=== PATIENT | female | born 1975 | race Caucasian/White ===

== ENCOUNTER 2018-12-31 11:06 | Emergency (ER) | payer SELFPAY ==
[~2018-12-31] VITALS: Ht 160 cm; Wt 82.1 kg
[~2018-12-31 11:06] MED LIST: ALBU2.5V8 INH; PRED50TA PO; PRED5DRO20 OP
[2018-12-31 11:23] VITALS: BP 155/73
[2018-12-31] MEDS ORDERED: IPRATRPIUM/ALBUTEROL 0.5/2.5MG 3 ML NEBU. NEB ONE (11:45)
--- NOTE | 2018-12-31 12:07 | PHYS DOC ---
Past Medical History Past Medical History: Asthma, Cancer, Hypertension, Hypothyroid, Other Additional Past Medical Histor: THYROID CA Past Surgical History: Other Additional Past Surgical Histo: THYROIDECTOMY Additional Information: 0.25 PPD Alcohol Use: Occasionally Drug Use: Marijuana Adult General Chief Complaint Chief Complaint: COUGH [facility] HPI Patient is a 43 year old female who presents with complaining of cough. Patient complaining of productive cough with yellow sputum for the last 2 weeks and subjective fever and nasal congestion. Patient complaining of shortness of breath, chest soreness after episodes of cough, generalized weakness. She denies diarrhea and urinary symptom. Patient did not seek medical attention for the last 2 weeks and took [id number] cough medication without improvement of her condition. Patient used to smoke one pack a cigarettes a day and cut down her smoking to 5 or 6 cigarettes a day recently. Review of Systems Review of Systems Constitutional: Subjective fever] Eyes: Denies change in visual acuity, redness, or eye pain [] HENT: Force nasal congestion Respiratory: Ports cough and shortness of breath Cardiovascular: No additional information not addressed in HPI [] GI: Denies abdominal pain, bloody stools or diarrhea and reports nausea and vomiting[] : Denies dysuria or hematuria [] Musculoskeletal: Denies back pain or joint pain [] Integument: Denies rash or skin lesions [] Neurologic: Denies headache, focal weakness or sensory changes [] Endocrine: Denies polyuria or polydipsia [] All other systems were reviewed and found to be within normal limits, except as documented in this note. Current Medications Current Medications Current Medications Medications (Trade) Dose Ordered Sig/Kamila Start Time Stop Time Status Last Admin Dose Admin Albuterol/ Ipratropium (Duoneb) 3 ml 1X ONCE 12/31/18 11:45 12/31/18 11:46 DC 12/31/18 11:54 3 ML Allergies Allergies Allergies Coded Allergies Type Severity Reaction Last Updated Verified Penicillins Allergy Intermediate 12/31/18 Yes Physical Exam Physical Exam Constitutional: Well developed, well nourished, mild distress, non-toxic appearance. [] HENT: Normocephalic, atraumatic, bilateral external ears normal, oropharynx moist, no oral exudates, nose normal. [] Eyes: PERRLA, EOMI, conjunctiva normal, no discharge. [] Neck: Normal range of motion, no tenderness, supple, no stridor. [] Cardiovascular:Heart rate regular rhythm, no murmur [] Lungs & Thorax: Mild rhonchi without wheezing and respiratory distress. Abdomen: Bowel sounds normal, soft, no tenderness, no masses, no pulsatile masses. [] Skin: Warm, dry, no erythema, no rash. [] Back: No tenderness, no CVA tenderness. [] Extremities: No tenderness, no cyanosis, no clubbing, ROM intact, no edema. [] Neurologic: Alert and oriented X 3, normal motor function, normal sensory function, no focal deficits noted. [] Psychologic: Affect normal, judgement normal, mood normal. [] Current Patient Data Vital Signs Vital Signs Date Time Temp Pulse Resp B/P (MAP) Pulse Ox O2 Delivery O2 Flow Rate FiO2 12/31/18 11:54 100 Room Air 12/31/18 11:23 97.9 51 20 155/73 (100) 97.9 EKG EKG [] Radiology/Procedures Radiology/Procedures [facility] [address] [place], [place] [id number] IMAGING REPORT Signed PATIENT: ALYSA MACIAS ACCOUNT: [id number] : 1975 LOCATION: ER AGE: 43 SEX: F EXAM STATUS: REG ER ORD. PHYSICIAN: ZEV BARON MD REASON: cough for 2 weeks PROCEDURE: CHEST PA & LATERAL Chest, 2 views, 12/31/2018: HISTORY: Cough The heart size and pulmonary vascularity are normal. A dense nodule in the left base is probably a granuloma. No acute infiltrate is seen. There is no evidence of pleural fluid. IMPRESSION: 1. Probable small granuloma in the left lung base. 2. No acute infiltrates. Electronically signed by: Sina Childs MD (12/31/2018 12:16 PM) [facility] DICTATED and SIGNED BY: SINA CHILDS MD DATE: 12/31/18 1216 Course & Med Decision Making Course & Med Decision Making Pertinent Imaging studies reviewed. (See chart for details) I've spoken with the patient and/or caregivers. I've explained the patient's condition, diagnosis and treatment plan based on information available to me at this time. I've answered the patient's and/or caregivers questions and addressed any concerns. The patient and/or caregivers have a good understanding the patient's diagnosis, condition and treatment plan as can be expected at this point. Vital signs have been stabilized. The patient's condition is stable for discharge from the emergency department. The patient will pursue further outpatient evaluation with her primary care provider or other designated consulting physician as outlined in the discharge instructions. Patient and/or caregivers are agreeable to this plan of care and follow-up instructions have been explained in detail. The patient and/or caregivers have received these instructions in written format and expressed understanding of these discharge instructions. The patient and her caregivers are aware that if any significant change in condition or worsening of symptoms should prompt him to immediately return to this of the closest emergency department. If an emergent department is not readily available I would encourage him to call 911. [place] Disclaimer Dragon Disclaimer This electronic medical record was generated, in whole or in part, using a voice recognition dictation system. Departure Departure Impression: Primary Impression: Acute bronchitis Additional Impressions: Tobacco abuse Tobacco abuse counseling Condition: IMPROVED Referrals: UNKNOWN PCP NAME (PCP) Patient Instructions: Acute Bronchitis, Smoking Cessation, Tips For Success Additional Instructions: Drink plenty of liquids Follow-up with your primary care physician in 3-5 days Return to ER if not getting better Scripts Prednisone (PREDNISONE) 50 Mg Tablet 1 TAB PO DAILY, #5 TAB Prov: ZEV BARON MD 12/31/18 Benzonatate (TESSALON PERLE) 100 Mg Capsule 1 CAP PO TID for cough, #30 CAP Prov: ZEV BARON MD 12/31/18 Sulfamethoxazole/Trimethoprim (BACTRIM DS TABLET) 1 Each Tablet 1 TAB PO BID for infection, #14 TAB Prov: ZEV BARON MD 12/31/18 Albuterol Sulfate (ALBUTEROL SULFATE NEB SOLN) 2.5 Mg/3 Ml Vial.neb 1 VIAL NEB Q6HRS PRN for SHORTNESS OF BREATH, #25 VIAL Prov: ZEV BARON MD 12/31/18 Problem Qualifiers Primary Impression: Acute bronchitis Bronchitis organism: unspecified organism Qualified Codes: J20.9 - Acute bronchitis, unspecified ZEV BARON MD December 31, 2018 12:07
--- NOTE | 2018-12-31 12:19 | RAD ---
Chest, 2 views, 12/31/2018: HISTORY: Cough The heart size and pulmonary vascularity are normal. A dense nodule in the left base is probably a granuloma. No acute infiltrate is seen. There is no evidence of pleural fluid. IMPRESSION: 1. Probable small granuloma in the left lung base. 2. No acute infiltrates. Electronically signed by: Sina Childs MD (12/31/2018 12:16 PM) [facility]
[2018-12-31] MEDS ORDERED: BENZ100C PO (12:22)
[2018-12-31] MEDS ORDERED: PRED50TA PO (12:22)
[2018-12-31] MEDS ORDERED: ALBU2.5V5 NEB (12:22)
[2018-12-31] MEDS ORDERED: SULF1TAB24 PO (12:22)
== END 2018-12-31 12:30 | disposition home or self-care (01) ==
LOC: ER 11:06
DX: J20.9 Acute bronchitis, unspecified (principal); R50.9 Fever, unspecified; R53.1 Weakness; Z71.6 Tobacco abuse counseling; F17.210 Nicotine dependence, cigarettes, uncomplicated; J45.909 Unspecified asthma, uncomplicated; I10 Essential (primary) hypertension; R11.2 Nausea with vomiting, unspecified; Z88.0 Allergy status to penicillin; E89.0 Postprocedural hypothyroidism; Z90.89 Acquired absence of other organs
CPT/HCPCS: 71046; 94640; 99284; J7620

== ENCOUNTER 2019-07-13 21:38 | Emergency (ER) | payer SELFPAY ==
[~2019-07-13] VITALS: Ht 160 cm; Wt 83.9 kg
[~2019-07-13 21:38] MED LIST changes: +ALBU2.5V5 NEB; +BENZ100C PO; +SULF1TAB24 PO
[2019-07-13 22:02] VITALS: BP 123/66
--- NOTE | 2019-07-13 22:48 | PHYS DOC ---
Past Medical History Past Medical History: Asthma, Cancer, Hypertension, Hypothyroid, Other Additional Past Medical Histor: THYROID CA Past Surgical History: Other Additional Past Surgical Histo: THYROIDECTOMY Alcohol Use: Occasionally Drug Use: Marijuana Adult General Chief Complaint Chief Complaint: LOWER EXT PAIN HPI HPI Patient is a 43 year old female who presents to the emergency Department for right foot pain has been ongoing for 3 months. She describes the pain as pins and needles going up and down her foot as she tries to walk on it. She describes the pain is her foot been asleep. She states that this is been ongoing for quite some time. Review of Systems Review of Systems Constitutional: Denies fever or chills [] Eyes: Denies change in visual acuity, redness, or eye pain [] HENT: Denies nasal congestion or sore throat [] Respiratory: Denies cough or shortness of breath [] Cardiovascular: No additional information not addressed in HPI [] GI: Denies abdominal pain, nausea, vomiting, bloody stools or diarrhea [] : Denies dysuria or hematuria [] Musculoskeletal: Reports R foot pain. Integument: Denies rash or skin lesions [] Neurologic: Denies headache, focal weakness or sensory changes [] Endocrine: Denies polyuria or polydipsia [] Complete systems were reviewed and found to be within normal limits, except as documented in this note. Allergies Allergies Allergies Coded Allergies Type Severity Reaction Last Updated Verified Penicillins Allergy Intermediate 12/31/18 Yes Physical Exam Physical Exam Constitutional: Well developed, well nourished, no acute distress, non-toxic appearance. [] HENT: Normocephalic, atraumatic, bilateral external ears normal, oropharynx moist, no oral exudates, nose normal. [] Eyes: PERRLA, EOMI, conjunctiva normal, no discharge. [] Neck: Normal range of motion, no tenderness, supple, no stridor. [] Skin: Warm, dry, no erythema, no rash. [] Back: No tenderness, no CVA tenderness. [] Extremities: No tenderness, no cyanosis, no clubbing, ROM intact, no edema. [] Neurologic: Alert and oriented X 3, normal motor function, normal sensory function, no focal deficits noted. [] Psychologic: Affect normal, judgement normal, mood normal. [] Current Patient Data Vital Signs Vital Signs Date Time Temp Pulse Resp B/P (MAP) Pulse Ox O2 Delivery O2 Flow Rate FiO2 07/13/19 22:02 97.9 77 15 123/66 (85) 95 Room Air 97.9 EKG EKG [] Radiology/Procedures Radiology/Procedures [] Course & Med Decision Making Course & Med Decision Making Pertinent Labs and Imaging studies reviewed. (See chart for details) Discussed with patient the need to obtain a primary care doctor to manage these chronic symptoms. Discussed with patient and nursing and gave out resources for free clinics. A medical screening exam was performed on this patient and the patient does not appear to be having a medical emergency. Her symptoms are not of sufficient severity and within reasonable medical probability it is unlikely the absence of immediate medical attention would result in placing the health of the individual (or, with respect to a woman, the health of the woman or her unborn child) in serious jeopardy, serious impairment to bodily functions, or serious dysfunction of any bodily organ or part. If , the patient is not in labor Dragon Disclaimer Dragon Disclaimer This electronic medical record was generated, in whole or in part, using a voice recognition dictation system. Departure Departure Impression: Primary Impression: Encounter for medical screening examination Disposition: HOME, SELF-CARE Condition: STABLE Referrals: UNKNOWN PCP NAME (PCP) Patient Instructions: Medical Screening Exam Additional Instructions: Thank you for visiting [facility]. We appreciate you trusting us with your care. If any additional problems come up don't hesitate to return to visit us. If symptoms worsen come back to the Emergency Department. Any concerning symptoms that start such as chest pain, shortness of air, weakness or numbness on one side of the body, running high fevers or any other concerning symptoms return to the ER. Please obtain a primary care doctor using resources given to you. JUNE HERNANDEZ APRN Jul 13, 2019 22:48
== END 2019-07-13 22:49 | disposition left against medical advice (07) ==
LOC: ER 21:38
DX: M79.671 Pain in right foot (principal); J45.909 Unspecified asthma, uncomplicated; I10 Essential (primary) hypertension; E03.9 Hypothyroidism, unspecified; F12.90 Cannabis use, unspecified, uncomplicated; Z90.89 Acquired absence of other organs; Z88.0 Allergy status to penicillin
CPT/HCPCS: 99281

== ENCOUNTER 2021-07-02 17:37 | Emergency (ER) | payer OTHER ==
[~2021-07-02] VITALS: Ht 162.6 cm; Wt 79.5 kg
--- NOTE | 2021-07-02 17:56 | PHYS DOC ---
Past Medical History Past Medical History: Asthma, Cancer, Hypertension, Hypothyroid, Other Additional Past Medical Histor: THYROID CA (SHAHAB CORREA DO) Past Medical History: Anxiety (JUNE GASTON DO) Past Surgical History: Other Additional Past Surgical Histo: THYROIDECTOMY (SHAHAB CORREA DO) Additional Past Surgical Histo: Carpal tunnel (JUNE GASTON DO) Smoking Status: Current Every Day Smoker Alcohol Use: Occasionally Drug Use: Marijuana (SHAHAB CORREA DO) General Adult EDM: Chief Complaint: MECHANICAL FALL HPI: HPI: 45-year-old female presents the emergency department complaining of a fall off a 8 foot ladder while she was painting her home earlier today. She reports that she is having pain in the right side because she impacted the ground by falling on the right side of her body. She also admits to a headache, tingling sensation in her neck. She denies any intoxication prior to the fall. The fall was described as getting to the second from the top rung of the ladder, hitting the side of the house and then falling and landing on her right side. She does not take any blood thinning medicines, only reports a past medical history of asthma. She does complain of a headache, denies any head trauma or loss of consciousness. (SHAHAB CORREA DO) Review of Systems: Review of Systems: Constitutional: Negative except what was mentioned in HPI. Eyes: Negative except what was mentioned in HPI. HENT: Negative except what was mentioned in HPI. Respiratory: Negative except what was mentioned in HPI. Cardiovascular: Negative except what was mentioned in HPI. GI: Negative except what was mentioned in HPI. : Negative except what was mentioned in HPI. Musculoskeletal: Negative except what was mentioned in HPI. Integument: Negative except what was mentioned in HPI. Neurologic: Negative except what was mentioned in HPI. Endocrine: Negative except what was mentioned in HPI. Lymphatic: Negative except what was mentioned in HPI. Psychiatric: Negative except what was mentioned in HPI. (SHAHAB CORREA DO) Heart Score: C/O Chest Pain: No (SHAHAB CORREA DO) Allergies: Allergies: Allergies Coded Allergies Type Severity Reaction Last Updated Verified Penicillins Allergy Intermediate 12/31/18 Yes (SHAHAB CORREA DO) Physical Exam: PE: A: Airway intact. B: Bialteral breath sounds present and equal bilaterally. C: Radial pulses 2+ bilaterally. D: GCS 15 Head: Atraumatic, no lacerations or hematomas. Ear: No blood in ear canals, no hemotympanum pinnae intact. Eyes: Pupils 3 mm equal and reactive, opens eyes spontaneously, no lacerations. Nose: No gross deformities, no fluid or blood from nares. Mouth: No lacerations or soft tissue deformities, teeth intact, airway intact, mucosa moist, no blood in oropharynx. Respiratory: Breath sounds equal bilaterally. Chest Wall: No obvious deformity. No lacerations, ecchymoses, or abrasion of the chest. No clavicular tenderness Cardiovascular: Radial and dorsalis pedis 2+ and equal, extremities well perfused. Neck: No cervical spine tenderness. No bony step offs. Trachea midline. No soft tissue swelling. Back: Positive mid thoracic spinal tenderness to palpation, no midline lumbar tenderness, no midline cervical tenderness. Soft collar is in place Abdomen/Pelvis: Soft, non-tender, non-distended. No laxity in pelvis, nontender to palpation. Extremities: LUE: Moves independently and sensation intact, no deformities, lacerations or abrasions. RUE: Right shoulder tenderness palpation. Moves independently and sensation intact, no deformities, lacerations or abrasions. LLE: Moves independently and sensation intact, no deformities, lacerations or abrasions. RLE: Moves independently and sensation intact, no deformities, lacerations or abrasions. (SHAHAB CORREA DO) PE: Constitutional: Well developed, well nourished, no acute distress, non-toxic appearance HENT: Normocephalic, atraumatic Eyes: PERRL, EOMI, conjunctiva normal, no discharge, no nystagmus Neck: C-collar in place, paraspinal tenderness noted, supple Lungs & Thorax: No respiratory distress, equal chest rise and fall Abdomen: Soft, no tenderness; pelvis stable and nontender Skin: Warm, dry, no erythema, no rash Back: No midline tenderness, no CVA tenderness Extremities: Right glenohumeral tenderness, ROM intact, no edema Neurologic: Alert and oriented X 3, normal motor function, normal sensory function, no focal deficits noted Psychologic: Affect normal, judgment normal (JUNE GASTON DO) Radiology/Procedures: Radiology/Procedures: PROCEDURE: SHOULDER 2+V RIGHT EXAM: 3 views right shoulder DATE: 07/02/2021 6:12 PM INDICATION: Reason: right shoulder pain / Spl. Instructions: / History: . COMPARISON: No Prior FINDINGS: No evidence of acute fracture or dislocation. AC joint is congruent. Humeral head is not high riding. IMPRESSION: 1. No acute fracture or dislocation. Electronically signed by: Skyler Jones MD (07/02/2021 6:15 PM) [facility] PROCEDURE: PELVIS EXAM: AP pelvis DATE: 07/02/2021 6:12 PM INDICATION: Reason: fall from 10 ft / Spl. Instructions: / History: . COMPARISON: No Prior FINDINGS: No evidence of acute fracture or dislocation. No pubic symphysis or SI joint diastases. Joint spaces are preserved. IMPRESSION: 1. No acute fracture or dislocation. Electronically signed by: Skyler Jones MD (07/02/2021 6:22 PM) [facility] PROCEDURE: PORTABLE CHEST 1V EXAM: AP View of the chest DATE: 07/02/2021 6:12 PM INDICATION: Reason: fall from 10 ft / Spl. Instructions: / History: COMPARISON: No Prior FINDINGS: The heart is not enlarged. Mediastinal and hilar contours are normal. Patchy opacities right lung base likely atelectasis or developing consolidation. Nodular opacity left lower lung. No pleural effusion or pneumothorax. IMPRESSION: 1. Nodular opacity left lower lung can be further assessed on CT. 2. Patchy opacities right lung base likely atelectasis or developing consolidation. Electronically signed by: Skyler Jones MD (07/02/2021 6:22 PM) [facility] PROCEDURE: CT chest, abdomen and pelvis with IV contrast. CT thoracolumbar spine reconstruction. INDICATION:45 years, Female, fall from 10 feet, headache. TECHNIQUE: Axial CT images of the chest, abdomen and pelvis were obtained. Coronal and sagittal reformatted performed. Axial, coronal and sagittal reconstruction of the thoracolumbar spine. COMPARISON: None. Exposure: One or more of the following individualized dose reduction techniques were utilized for this examination: 1. Automated exposure control 2. Adjustment of the mA and/or kV according to patient size 3. Use of iterative reconstruction technique. FINDINGS: CHEST: Left thyroidectomy. Right thyroid lobe and esophagus are unremarkable. No lymphadenopathy in the chest by size criteria. No cardiomegaly or pericardial effusion. Normal caliber thoracic aorta and pulmonary arteries. Central airways are patent. Moderate centrilobular pulmonary emphysema in the upper lobes. Dependent subsegmental atelectasis in bibasilar lungs. Linear scarring in the lingula. Calcified granuloma in the left lower lobe. There is a 5.5 mm fissure based nodule in the right middle lobe. There is a 4 mm fissure based nodule in the left upper lobe. There is a 3 mm pulmonary nodule in the right upper lobe. ABDOMEN/PELVIS: Liver, gallbladder, biliary ducts, spleen, pancreas, adrenal glands and kidneys are unremarkable. No bowel obstruction. Sigmoid diverticulosis without acute diverticulitis. Appendix is normal. Normal caliber abdominal aorta. Mesenteric arteries and portal vein are patent. No ascites or pneumoperitoneum. No lymphadenopathy in the abdomen or pelvis. Unremarkable urinary bladder. Retroverted uterus. No suspicious pelvic masses. MUSCULOSKELETAL STRUCTURES INCLUDING THORACOLUMBAR SPINE: The vertebral bodies of thoracolumbar spine are normal in height and alignment. No acute fracture or subluxation. No intraspinal hematoma. Mild multilevel degenerative changes in the spine. No significant canal stenosis. Multilevel facet arthropathy in the lower lumbar spine, worst at L4-5 and L5-S1, causing moderate bilateral neural foraminal narrowing. No acute fracture in the pelvis. Calcified injection granulomas in the subcutaneous test tissue of the right gluteal region. IMPRESSION: 1. No acute traumatic abnormality of the chest, abdomen, pelvis, or thoracolumbar spine. 2. Moderate centrilobular pulmonary emphysema. 3. Bilateral pulmonary nodules measuring up to 5.5 mm. High-Risk patient, consider 12 months follow-up with CT chest. 4. Other chronic/incidental findings, as described above. Electronically signed by: Charline Ayoub MD (07/02/2021 8:50 PM) [facility] PROCEDURE: CT HEAD AND CERVICAL SPINE WO EXAM: CT HEAD WITHOUT IV CONTRAST CLINICAL HISTORY: Reason: fall from 10 ft, headache / Spl. Instructions: / History: COMPARISON: None. TECHNIQUE: Routine CT of the head without contrast. Soft tissues and bone windows were reviewed. PQRS compliance statement - One or more of the following individualized dose reduction techniques were utilized for this study: 1. Automated exposure control 2. Adjustment of the mA and/or kV according to patient size 3. Use of iterative reconstruction technique FINDINGS: There is no evidence of hemorrhage, mass or extra-axial fluid collection. Mora-white differentiation is maintained with no evidence of edema. There is no mass effect or shift of the intracranial structures. The ventricles, basilar cisterns and cortical sulci are normal in size and configuration for the patients stated age. The cerebellum and brainstem are unremarkable. The calvarium demonstrates no evidence of fracture or focal lesion. There is normal aeration of the visualized paranasal sinuses and mastoid air cells. The visualized portions of the orbits are normal. IMPRESSION: No evidence for acute intracranial process. EXAM: CT CERVICAL SPINE WITHOUT IV CONTRAST CLINICAL HISTORY: Reason: fall from 10 ft, headache / Spl. Instructions: / History: COMPARISON: None available. TECHNIQUE: Helical CT of the cervical spine was performed. Axial, coronal and s agittal reformatted images were also performed. PQRS compliance statement - One or more of the following individualized dose re duction techniques were utilized for this study: 1. Automated exposure control 2. Adjustment of the mA and/or kV according to patient size 3. Use of iterative reconstruction technique FINDINGS: Vertebral body heights are preserved. No spondylolisthesis. Mild C3-4 and moderate C5-6 disc height loss. Small posterior endplate osteophytes C5-6 resulting in mild central canal stenosis. Biapical emphysematous changes are seen. Partial left thyroidectomy changes are seen. IMPRESSION: 1. Multilevel spondylosis as above 2. Negative acute fracture or subluxation. Electronically signed by: Skyler Jones MD (07/02/2021 8:32 PM) [facility] (JUNE GASTON DO) Course & Med Decision Making: Course & Med Decision Making Patient was seen by me at 1750 due to concerning mechanism, patient was signed out to Dr. Gaston at 1800 pending diagnostics and reassessment. (SHAHAB CORREA DO) Course & Med Decision Making 1800-signout received from Dr. Correa for patient status post fall off ladder. Patient pending laboratory and CT imaging. Chest x-ray, pelvis x-ray, and right shoulder x-ray reviewed and without acute process. Pain previously addressed. Patient seen and evaluated myself. Labs reviewed and posted to chart. CT imaging also reviewed and again without significant abnormality/acute process. Incidental lung nodules noted. A copy of CT imaging provided to patient with instructions to follow-up with PCP regarding further evaluation/reimaging. Additional pain medication provided. C-collar cleared. Patient stable for discharge with outpatient follow-up with PCP. Discussed findings and plan with patient and family, who acknowledge understanding and agreement. (JUNE GASTON DO) Departure Departure Impression: Primary Impression: Fall Qualified Codes: W19.XXXA - Unspecified fall, initial encounter Additional Impressions: Head contusion Qualified Codes: S00.03XA - Contusion of scalp, initial encounter Back pain Qualified Codes: M54.9 - Dorsalgia, unspecified Shoulder pain, right Qualified Codes: M25.511 - Pain in right shoulder Pulmonary nodule Disposition: 01 HOME / SELF CARE / HOMELESS Condition: STABLE Referrals: UNKNOWN PCP NAME (PCP) PHUC FARNSWORTH DO Patient Instructions: Back Pain, Adult, [id number], Facial or Scalp Contusion, [id number], Fall Prevention and Home Safety, [id number], Pulmonary Nodule, [id number], Shoulder Pain, [id number] Additional Instructions: ICE area of discomfort 20 min on then leave off next 20 mins. Repeat several times daily as needed for next few days. May also take over the counter Ibuprofen in addition to prescribed pain medications. Please give copy of your CT results to your doctor for future re-evaluation regarding pulmonary nodules. Scripts Hydrocodone Bit/Acetaminophen (HYDROCODONE-APAP 5-325 ) 1 Tab Tablet 0.5-1 TAB PO PRN Q6HRS PRN for PAIN, #10 TAB 0 Refills Prov: JUNE GASTON DO 07/02/21 Orphenadrine Citrate (ORPHENADRINE CITRATE) 100 Mg Tablet.er 100 MG PO BID PRN for MUSCLE PAIN, #14 TAB Prov: JUNE GASTON DO 07/02/21 SHAHAB CORREA DO Jul 02, 2021 17:56 JUNE GASTON DO Jul 02, 2021 21:20
[2021-07-02] MEDS ORDERED: fentaNYL PF VIAL 100 MCG/2 ML VIAL IV/SQ PRN (18:00)
--- NOTE | 2021-07-02 18:17 | RAD ---
EXAM: 3 views right shoulder DATE: 07/02/2021 6:12 PM INDICATION: Reason: right shoulder pain / Spl. Instructions: / History: . COMPARISON: No Prior FINDINGS: No evidence of acute fracture or dislocation. AC joint is congruent. Humeral head is not high riding. IMPRESSION: 1. No acute fracture or dislocation. Electronically signed by: Skyler Jones MD (07/02/2021 6:15 PM) [facility]
--- NOTE | 2021-07-02 18:24 | RAD ---
EXAM: AP View of the chest DATE: 07/02/2021 6:12 PM INDICATION: Reason: fall from 10 ft / Spl. Instructions: / History: COMPARISON: No Prior FINDINGS: The heart is not enlarged. Mediastinal and hilar contours are normal. Patchy opacities right lung base likely atelectasis or developing consolidation. Nodular opacity left lower lung. No pleural effusion or pneumothorax. IMPRESSION: 1. Nodular opacity left lower lung can be further assessed on CT. 2. Patchy opacities right lung base likely atelectasis or developing consolidation. Electronically signed by: Skyler Jones MD (07/02/2021 6:22 PM) [facility]
--- NOTE | 2021-07-02 18:25 | RAD ---
EXAM: AP pelvis DATE: 07/02/2021 6:12 PM INDICATION: Reason: fall from 10 ft / Spl. Instructions: / History: . COMPARISON: No Prior FINDINGS: No evidence of acute fracture or dislocation. No pubic symphysis or SI joint diastases. Joint spaces are preserved. IMPRESSION: 1. No acute fracture or dislocation. Electronically signed by: Skyler Jones MD (07/02/2021 6:22 PM) [facility]
[2021-07-02] MEDS ORDERED: CONTRAST GIVEN. MC PRN (18:30)
[2021-07-02] MEDS ORDERED: IOHEXOL 300 MG/ML 100ML VIAL. IV ONE ×2 (18:30→19:45)
[2021-07-02 18:51] LABS: BASO # 0.1 x10^3/uL (0.0-0.2); BASO % 1 % (0-3); EOS # 0.4 x10^3/uL (0.0-0.7); EOS % 4 % (0-3); HEMATOCRIT 42.2 % (36.0-47.0); HEMOGLOBIN 14.7 g/dL (12.0-15.5); LYMPH # 3.8 x10^3/uL (1.0-4.8); LYMPH % 40 % (24-48); MEAN CORPUSCULAR HEMOGLOBIN 32 pg (25-35); MEAN CORPUSCULAR HGB CONC 35 g/dL (31-37); MEAN CORPUSCULAR VOLUME 92 fL (79-100); MONO # 0.6 x10^3/uL (0.0-1.1); MONO % 6 % (0-9); NEUT # 4.5 x10^3/uL (1.8-7.7); NEUT % 48 % (31-73); PLATELET COUNT 244 x10^3/uL (140-400); RED BLOOD COUNT 4.61 x10^6/uL (3.50-5.40); RED CELL DISTRIBUTION WIDTH 12.7 % (11.5-14.5); WHITE BLOOD COUNT 9.4 x10^3/uL (4.0-11.0)
[2021-07-02 19:01] LABS: CALCIUM 8.7 mg/dL (8.5-10.1); CREATININE 0.9 mg/dL (0.6-1.0); POTASSIUM 3.9 mmol/L (3.5-5.1)
[2021-07-02 19:04] LABS: ALBUMIN 3.6 g/dL (3.4-5.0); ALBUMIN/GLOBULIN RATIO 1.1 (1.0-1.7); TOTAL BILIRUBIN 0.2 mg/dL (0.2-1.0); TOTAL PROTEIN 6.8 g/dL (6.4-8.2)
[2021-07-02 19:08] LABS: BILIRUBIN,URINE NEGATIVE (NEG); CLARITY,URINE CLEAR; COLOR,URINE YELLOW; NITRITE,URINE NEGATIVE (NEG); PH,URINE 6.5 (<5.0-8.0); PROTEIN,URINE NEGATIVE (NEG-TRACE); UROBILINOGEN,URINE 0.2 mg/dL (0.2 mg/dL)
[2021-07-02 19:13] LABS: BACTERIA,URINE 0 /HPF (0-FEW); RBC,URINE 0 /HPF (0-2); WBC,URINE OCC /HPF (0-4)
[2021-07-02 19:15] LABS: BARBITURATES NEG (NEG); BENZODIAZEPINES NEG (NEG); CANNABINOIDS NEG (NEG); COCAINE NEG (NEG); METHADONE NEG (NEG); OPIATES NEG (NEG); PHENCYCLIDINE NEG (NEG)
[2021-07-02 19:16] LABS: AMPHETAMINE/METHAMPHETAMINE NEG (NEG)
[2021-07-02 20:11] VITALS: BP 162/92
[2021-07-02] MEDS ORDERED: KETOROLAC 15 MG/ML VIAL. IVP ONE (20:30)
[2021-07-02] MEDS ORDERED: ORPHENADRINE CITRATE 60 MG/2 ML VIAL. IV ONE (20:30)
--- NOTE | 2021-07-02 20:35 | RAD ---
EXAM: CT HEAD WITHOUT IV CONTRAST CLINICAL HISTORY: Reason: fall from 10 ft, headache / Spl. Instructions: / History: COMPARISON: None. TECHNIQUE: Routine CT of the head without contrast. Soft tissues and bone windows were reviewed. PQRS compliance statement - One or more of the following individualized dose reduction techniques wer e utilized for this study: 1. Automated exposure control 2. Adjustment of the mA and/or kV according to patient size 3. Use of iterative reconstruction technique FINDINGS: There is no evidence of hemorrhage, mass or extra-axial fluid collection. Mora-white differentiation is maintained with no evidence of edema. There is no mass effect or shift of the intracranial structures. The ventricles, basilar cisterns and cortical sulci are normal in size and configuration for the jocelyn ents stated age. The cerebellum and brainstem are unremarkable. The calvarium demonstrates no evidence of fracture or focal lesion. There is normal aeration of the visualized paranasal sinuses and mastoid air cells. The visualized portions of the orbits are normal. IMPRESSION: No evidence for acute intracranial process. EXAM: CT CERVICAL SPINE WITHOUT IV CONTRAST CLINICAL HISTORY: Reason: fall from 10 ft, headache / Spl. Instructions: / History: COMPARISON: None available. TECHNIQUE: Helical CT of the cervical spine was performed. Axial, coronal and sagittal reformatted im ages were also performed. PQRS compliance statement - One or more of the following individualized dose reduction techniques wer e utilized for this study: 1. Automated exposure control 2. Adjustment of the mA and/or kV according to patient size 3. Use of iterative reconstruction technique FINDINGS: Vertebral body heights are preserved. No spondylolisthesis. Mild C3-4 and moderate C5-6 disc height loss. Small posterior endplate osteophytes C5-6 resulting in mild central canal stenosis. Biapical emphysematous changes are seen. Partial left thyroidectomy changes are seen. IMPRESSION: 1. Multilevel spondylosis as above 2. Negative acute fracture or subluxation. Electronically signed by: Skyler Jones MD (07/02/2021 8:32 PM) [facility]
--- NOTE | 2021-07-02 20:52 | RAD ---
EXAMINATION: CT chest, abdomen and pelvis with IV contrast. CT thoracolumbar spine reconstruction. INDICATION:45 years, Female, fall from 10 feet, headache. TECHNIQUE: Axial CT images of the chest, abdomen and pelvis were obtained. Coronal and sagittal refor matted performed. Axial, coronal and sagittal reconstruction of the thoracolumbar spine. COMPARISON: None. Exposure: One or more of the following individualized dose reduction techniques were utilized for thi s examination: 1. Automated exposure control 2. Adjustment of the mA and/or kV according to patient size 3. Use of iterative reconstruction technique. FINDINGS: CHEST: Left thyroidectomy. Right thyroid lobe and esophagus are unremarkable. No lymphadenopathy in the ches t by size criteria. No cardiomegaly or pericardial effusion. Normal caliber thoracic aorta and pulmon judy arteries. Central airways are patent. Moderate centrilobular pulmonary emphysema in the upper lob es. Dependent subsegmental atelectasis in bibasilar lungs. Linear scarring in the lingula. Calcified granuloma in the left lower lobe. There is a 5.5 mm fissure based nodule in the right middle lobe. Th ere is a 4 mm fissure based nodule in the left upper lobe. There is a 3 mm pulmonary nodule in the ri ght upper lobe. ABDOMEN/PELVIS: Liver, gallbladder, biliary ducts, spleen, pancreas, adrenal glands and kidneys are unremarkable. No bowel obstruction. Sigmoid diverticulosis without acute diverticulitis. Appendix is normal. Normal ca liber abdominal aorta. Mesenteric arteries and portal vein are patent. No ascites or pneumoperitoneum . No lymphadenopathy in the abdomen or pelvis. Unremarkable urinary bladder. Retroverted uterus. No s uspicious pelvic masses. MUSCULOSKELETAL STRUCTURES INCLUDING THORACOLUMBAR SPINE: The vertebral bodies of thoracolumbar spine are normal in height and alignment. No acute fracture or subluxation. No intraspinal hematoma. Mild multilevel degenerative changes in the spine. No significa nt canal stenosis. Multilevel facet arthropathy in the lower lumbar spine, worst at L4-5 and L5-S1, c ausing moderate bilateral neural foraminal narrowing. No acute fracture in the pelvis. Calcified inje ction granulomas in the subcutaneous test tissue of the right gluteal region. IMPRESSION: 1. No acute traumatic abnormality of the chest, abdomen, pelvis, or thoracolumbar spine. 2. Moderate centrilobular pulmonary emphysema. 3. Bilateral pulmonary nodules measuring up to 5.5 mm. High-Risk patient, consider 12 months follow- up with CT chest. 4. Other chronic/incidental findings, as described above. Electronically signed by: Chalrine Ayoub MD (07/02/2021 8:50 PM) [facility]
[2021-07-02] MEDS ORDERED: HYDR-2759 PO (21:13)
[2021-07-02] MEDS ORDERED: ORPH100T PO (21:13)
[2021-07-02] MEDS ORDERED: HYDR-2761 PO (21:19)
== END 2021-07-02 21:30 | disposition home or self-care (01) ==
LOC: ER 17:37
DX: S00.03XA Contusion of scalp, initial encounter (principal); M25.511 Pain in right shoulder; R51.9 Headache, unspecified; R91.1 Solitary pulmonary nodule; M54.9 Dorsalgia, unspecified; J45.909 Unspecified asthma, uncomplicated; I10 Essential (primary) hypertension; E03.9 Hypothyroidism, unspecified; F17.200 Nicotine dependence, unspecified, uncomplicated; Z88.0 Allergy status to penicillin; W11.XXXA Fall on and from ladder, initial encounter; Y93.89 Activity, other specified; Y92.89 Other specified places as the place of occurrence of the external cause; Y99.8 Other external cause status
CPT/HCPCS: 36415; 70450; 71045; 71260; 72125; 72170; 73030; 74177; 80053; 80307; 81001; 81025; 83690; 85025; 86850; 86900; 86901; 87086; 96374; 96375; 99285; G0480; J1885; J2360; J3010; Q9967